=== PATIENT | female | born 1970 | race Caucasian/White ===

== ENCOUNTER 2023-01-14 11:38 | Day surgery (SDC) | payer OTHER ==
[2023-01-13 13:15] VITALS: BMI 29.1
[~2023-01-14 11:38] MED LIST: EPINEPHrine 0.3 MG in Ophthalmic Irrigation Solution 500 ML IRR SCH; Midazolam HCl 2 mg/2 ml Vial ONE; fentaNYL 50 mcg/mL 1 mL Vial ONE
[2023-01-14] MEDS ORDERED: PHENYLephrine 2.5% Ophth Soln 15 ml Bottle ONE ×2 (12:17)
[2023-01-14] MEDS ORDERED: Cyclopentolate 0.5% Opth Drops 15 ML BOT ONE (12:17)
[2023-01-14] MEDS ORDERED: Maxitrol 0.1% Opth Oint 3.5 GM TUBE ONE ×2 (12:19→13:16)
[2023-01-14] MEDS ORDERED: Lidocaine 1% PF 5 ML VIAL ONE (13:16)
[2023-01-14] MEDS ORDERED: diphenhydrAMINE 50 MG/ML VIAL ONE (13:16)
[2023-01-14] MEDS ORDERED: Bupivacaine 0.75% 10 ML VIAL ONE (13:16)
[2023-01-14] MEDS ORDERED: CEFAZOLIN 1 GM VIAL ONE (13:16)
[2023-01-14] MEDS ORDERED: PROPOFOL 200 MG/20 ML VIAL ONE (13:16)
[2023-01-14] MEDS ORDERED: Lidocaine 4% PF 5 ML AMP ONE (13:16)
[2023-01-14] MEDS ORDERED: Triamcinolone 40 MG/ML VIAL ONE (13:16)
== END 2023-01-14 14:31 | disposition home or self-care (01) ==
LOC: SDC 11:38
PROVIDERS: ATTEND Ophthalmology Retina Specialist
PROC: 08T53ZZ Resection of Left Vitreous, Percutaneous Approach (ICD-10-PCS; principal; 2023-01-14)
PROC: 08QF3ZZ Repair Left Retina, Percutaneous Approach (ICD-10-PCS; 2023-01-14)
DX: H43.12 Vitreous hemorrhage, left eye (principal); E11.3592 Type 2 diabetes mellitus with proliferative diabetic retinopathy without macular edema, left eye; Z88.8 Allergy status to other drugs, medicaments and biological substances
CPT/HCPCS: 67040; 82962; J3010; 36416; J0171; J0690; J1200; J2250; J2704; J3301; J3490